=== PATIENT | female | born 1970 | race Hispanic/Latino ===

== ENCOUNTER → 2024-08-01 | Day surgery (SDC) | payer OTHER ==
[~2024-08-01] MED LIST: FENTANYL CITRATE/PF 100MCG/2 ML INJ ONE; FLECTOR1 EACH PO; FOLIC ACID0.4 MG PO; GLYCOPYRROLATE INJ 0.2 MG/ML VIAL ONE; HYDROCHLOROTHIA25 MG PO; LIDOCAINE HCL 2% LOCAL INJ 5 ML SDV VIAL INJ ONE; MELOXICAM7.5 MG PO; MIDAZOLAM HCL 2 MG/2 ML VIAL ONE; OMEPRAZOLE40 MG PO; PROPOFOL IV EMULSION 10 MG/ML 20 ML VIAL ONE; TUMS ULTRA400 MG PO
[2024-08-01] MEDS: LACTATED RINGER'S 1,000 ML ONE (09:04)
[2024-08-01 11:23] VITALS: TEMP 97.1
[2024-08-01 11:45] VITALS: BP 116/80; PULSE 81; RESP 18; O2SAT 100
== END | disposition home or self-care (01) ==
LOC: OR 08:16
PROVIDERS: ATTEND Internal Medicine Gastroenterology
DX: K29.50 Unspecified chronic gastritis without bleeding (principal); K21.9 Gastro-esophageal reflux disease without esophagitis; K44.9 Diaphragmatic hernia without obstruction or gangrene; R19.8 Other specified symptoms and signs involving the digestive system and abdomen; R14.0 Abdominal distension (gaseous); K64.8 Other hemorrhoids; K29.80 Duodenitis without bleeding; K31.7 Polyp of stomach and duodenum; R03.0 Elevated blood-pressure reading, without diagnosis of hypertension; E78.5 Hyperlipidemia, unspecified; L20.9 Atopic dermatitis, unspecified; Z87.11 Personal history of peptic ulcer disease; Z01.810 Encounter for preprocedural cardiovascular examination; Z79.1 Long term (current) use of non-steroidal anti-inflammatories (NSAID)
CPT/HCPCS: 43239; 45380; 93005; J2003; J2250

== ENCOUNTER → 2025-05-07 | Day surgery (SDC) | payer OTHER ==
[2025-05-06 11:21] LABS: BASOPHILS % 0.8 % (0.0-1.0); EOSINOPHILS % 1.5 % (0.0-6.0); LYMPHOCYTES % 31.5 % (18.0-39.1); MONOCYTES % 7.9 % (4.4-11.3); NEUTROPHILS % 58.1 % (38.7-80.0); RED CELL DISTRIBUTION WIDTH 12.4 % (11.7-14.4)
[2025-05-06 11:40] LABS: EST GLOMERULAR FILTRATION RATE 106.0 ML/MIN (>=60)
[~2025-05-07] MED LIST changes: +DEXAMETHASONE SOD PHOS INJ 4 MG/ML SDV ONE; -GLYCOPYRROLATE INJ 0.2 MG/ML VIAL ONE; +LACTATED RINGER'S 1,000 ML ONE; +ONDANSETRON HCL INJ 2MG/ML 2ML 2 MG/ML VIAL ONE
[2025-05-07 09:52] VITALS: TEMP 97.9
[2025-05-07] MEDS: HYDROCODONE/APAP 7.5MG-325MG 1 EA TAB ONE (10:13)
[2025-05-07] MEDS: ONDANSETRON HCL INJ 2MG/ML 2ML 2 MG/ML VIAL IV ONE (10:50)
[2025-05-07 11:00] VITALS: BP 106/77; PULSE 78; RESP 16; O2SAT 98
== END | disposition home or self-care (01) ==
LOC: OR 06:33
PROVIDERS: ATTEND Surgery
DX: D17.79 Benign lipomatous neoplasm of other sites (principal); I10 Essential (primary) hypertension; K21.9 Gastro-esophageal reflux disease without esophagitis; Z01.810 Encounter for preprocedural cardiovascular examination; Z01.812 Encounter for preprocedural laboratory examination; Z79.899 Other long term (current) drug therapy
CPT/HCPCS: 36415; 80053; 85025; 88304; 93005; J1100; J2003; J2250; J2405